=== PATIENT | female | born 1985 | race Caucasian/White ===

== ENCOUNTER → 2023-02-21 | Outpatient (CLI) | payer BC ==
--- NOTE | 2023-02-24 16:59 | MM ---
Reason for Exam: Screening (asymptomatic). Baseline mammogram. Patient History: Menarche at age 10. First Full-Term at age 30. Late child-bearing (after 28). Last menstrual period: 02/18/2023 Risk Values: Rafaela 5 year model risk: 0.7%. NCI Lifetime model risk: 13.7%. Prior Study Comparison: Patient's first Mammogram. No prior studies available for comparison. Tissue Density: There are scattered fibroglandular densities. Findings: Analyzed By CAD. Benign round and punctate dermal calcifications are present. There is no suspicious group of microcalcifications, significant mass, or other discrete abnormality seen in either breast. Overall Assessment: Benign, BI-RAD 2 Management: Screening Mammogram of both breasts in 1 year. . Patient should continue monthly self-breast exams. A clinical breast exam by your physician is recommended on an annual basis. This exam should not preclude additional follow-up of suspicious palpable abnormalities. Note on Rafaela scores and lifetime risk: 1. A Rafaela score greater than 3% is considered moderate risk. If this is the case, consider specialist referral to assess eligibility for a risk reducing agent. 2. If overall lifetime risk for the development of breast cancer is 20% or higher, the patient may qualify for future screening with alternating mammogram and breast MRI. Electronically signed and approved by: Bob Brown M.D. Radiologist
== END | disposition home or self-care (01) ==
LOC: RADMAMWWP 07:43
PROVIDERS: ATTEND Family Medicine
DX: Z12.31 Encounter for screening mammogram for malignant neoplasm of breast (principal)
CPT/HCPCS: 77063; 77067

== ENCOUNTER → 2023-08-31 | Outpatient (CLI) | payer BC ==
--- NOTE | 2023-09-02 07:04 | MR ---
EXAMINATION TYPE: MR sacroiliac joints wo con DATE OF EXAM: 08/31/2023 COMPARISON: None. HISTORY: Low back pain, Sacroiliitis Standard multiplanar, multisequence MRI departmental protocol Multiplanar, multisequence images of the pelvis focusing on the sacroiliac joints were acquired witho ut contrast. FINDINGS: Sacroiliac joints appear symmetric and felt within normal limits. There is no obvious erosi ve change. No suspicious periarticular increased T2 signal or edema is identified. No significant spu rring is seen. Some vacuum disc phenomenon with mild disc bulging at L4-L5 level is present. Anteverted Uterus is no serene. Symmetric normal-size ovaries. No free fluid in the pelvis. No abnormal bowel dilatation. IMPRESSION: No convincing evidence for active or chronic inflammatory change level sacroiliac joints on noncontrast MRI.
== END | disposition home or self-care (01) ==
LOC: RADMRIMAIN 17:41
PROVIDERS: ATTEND Internal Medicine Rheumatology
DX: M46.1 Sacroiliitis, not elsewhere classified (principal)
CPT/HCPCS: 72195

== ENCOUNTER 2023-10-25 15:28 | Emergency (ER) | payer BC, OTHER ==
[2023-10-25 15:39] VITALS: RESP 16
--- NOTE | 2023-10-25 16:42 | XR ---
EXAMINATION TYPE: XR tibia fibula LT DATE OF EXAM: 10/25/2023 CLINICAL HISTORY: pain TECHNIQUE: AP and lateral images of the left tibia and fibula are obtained. COMPARISON: None. FINDINGS: There is no acute fracture/dislocation evident. The joint spaces appear within normal hurtado its. The overlying soft tissue appears unremarkable. IMPRESSION: There is no acute fracture or dislocation seen. ICD 10 NO FRACTURE, INITIAL EVALUATION
--- NOTE | 2023-10-25 16:43 | XR ---
EXAMINATION TYPE: XR foot complete LT DATE OF EXAM: 10/25/2023 CLINICAL HISTORY: pain TECHNIQUE: Frontal, lateral and oblique images of the left foot are obtained. COMPARISON: None. FINDINGS: There is no acute fracture/dislocation evident. The joint spaces appear within normal hurtado its. The overlying soft tissue appears unremarkable. Plantar and dorsal calcaneal spur. IMPRESSION: There is no acute fracture or dislocation. ICD 10 NO FRACTURE, INITIAL EVALUATION
--- NOTE | 2023-10-25 17:44 | ED ---
General Adult HPI - General Chief complaint: Extremity Injury, Lower Stated complaint: fall, L leg numbness Time Seen by Provider: 10/25/23 15:44 Source: patient, RN notes reviewed Mode of arrival: ambulatory Limitations: no limitations - History of Present Illness Initial comments: 38-year-old female presents to the emergency department for evaluation of left lower extremity pain. Patient states that yesterday while walking on the stairs she tripped and fell. She notes that since this time she has had pain in her left foot, ankle, and knee. She has been able to ambulate. She denies any other injury, head injury, blood thinners. - Related Data Previous Rx's Medication Instructions Recorded Orphenadrine [Norflex] 100 mg PO Q12H #10 tablet.er 09/04/14 Allergies Allergy/AdvReac Type Severity Reaction Status Date / Time No Known Allergies Allergy Verified 09/04/14 18:37 Review of Systems ROS Statement: Those systems with pertinent positive or pertinent negative responses have been documented in the HPI. ROS Other: All systems not noted in ROS Statement are negative. Past Medical History Additional Past Medical History / Comment(s): tremors History of Any Multi-Drug Resistant Organisms: None Reported Past Surgical History: Orthopedic Surgery Past Psychological History: No Psychological Hx Reported Past Alcohol Use History: None Reported Past Drug Use History: None Reported General Exam Limitations: no limitations General appearance: alert, in no apparent distress Head exam: Present: atraumatic, normocephalic, normal inspection Eye exam: Present: normal appearance, PERRL, EOMI. Absent: scleral icterus, conjunctival injection, periorbital swelling Respiratory exam: Present: normal lung sounds bilaterally. Absent: respiratory distress, wheezes, rales, rhonchi, stridor Cardiovascular Exam: Present: regular rate, normal rhythm, normal heart sounds. Absent: systolic murmur, diastolic murmur, rubs, gallop, clicks Extremities exam: Present: full ROM, tenderness (left foot and knee), normal capillary refill, other (DP and PT pulses 2+). Absent: pedal edema, joint swelling, calf tenderness Back exam: Present: normal inspection Neurological exam: Present: alert, oriented X3 Psychiatric exam: Present: normal affect, normal mood Skin exam: Present: warm, dry, intact, normal color. Absent: rash Course Vital Signs 10/25/23 10/25/23 15:36 18:10 Temperature 98.4 F 98.3 F Pulse Rate 71 74 Respiratory 16 16 Rate Blood Pressure 141/87 139/86 O2 Sat by Pulse 98 98 Oximetry Medical Decision Making - Medical Decision Making Was pt. sent in by a medical professional or institution (, [facility], DISABILITY INSURANCE CLAIM EXAMINER, urgent care, hospital, or long term...) When possible be specific @ -No Did you speak to anyone other than the patient for history (EMS, parent, family, police, friend...)? What history was obtained from this source @ -No Did you review nursing and triage notes (agree or disagree)? Why? @ -I reviewed and agree with nursing and triage notes Were old charts reviewed (outside hosp., previous admission, EMS record, old EKG, old radiological studies, urgent care reports/EKG's, long term records)? Report findings @ -No old charts were reviewed Differential Diagnosis (chest pain, altered mental status, abdominal pain women, abdominal pain men, vaginal bleeding, weakness, fever, dyspnea, syncope, headache, dizziness, GI bleed, back pain, seizure, CVA, palpatations, mental health, musculoskeletal)? @ -Differential Musculoskeletal Muscular strain, contusion, ligament sprain, fracture, arthritis, septic arthritis, bursitis, cellulitis, muscle spasm, nerve compression, DVT, arterial occlusion, herpes zoster, electrolyte abnormality, tumor.... This is not meant to be in all inclusive list EKG interpreted by me (3pts min.). @ -None X-rays interpreted by me (1pt min.). @ -X-ray of the left tib-fib and left foot show no evidence of acute osseous abnormality CT interpreted by me (1pt min.). @ -None done U/S interpreted by me (1pt. min.). @ -None done What testing was considered but not performed or refused? (CT, X-rays, U/S, labs)? Why? @ -None What meds were considered but not given or refused? Why? @ -None Did you discuss the management of the patient with other professionals (professionals i.e. [facility] Lorenzana, DISABILITY INSURANCE CLAIM EXAMINER, lab, RT, psych nurse, addiction social worker, or scrub tech, teacher, dog license officer supervisor, correctional casework specialist)? Give summary @ -No Was smoking cessation discussed for >3mins.? @ -No Was critical care preformed (if so, how long)? @ -No Were there social determinants of health that impacted care today? How? (Homelessness, low income, unemployed, alcoholism, drug addiction, transport ation, low edu. Level, literacy, decrease access to med. care, residential, rehab)? @ -No Was there de-escalation of care discussed even if they declined (Discuss DNR or withdrawal of care, Hospice)? DNR status @ -No What co-morbidities impacted this encounter? (DM, HTN, Smoking, COPD, CAD, Cancer, CVA, ARF, Chemo, Hep., AIDS, mental health diagnosis, sleep apnea, morbid obesity)? @ -None Was patient admitted / discharged? Hospital course, mention meds given and route, prescriptions, significant lab abnormalities, going to OR and other pertinent info. @ -Discharge. Patient presented to the emergency department for evaluation of left lower extremity injury. X-rays obtained revealing no evidence of acute fracture or dislocation. Patient was provided a dose of Toradol while in the emergency department. She is able to ambulate. She will be discharged home and advised to follow-up to her primary care provider. Advised symptomatic treatment at this time including rest, ice, elevation. She is understanding agreeable plan. Patient stable at time of discharge. Case discussed with Dr. Muniz Undiagnosed new problem with uncertain prognosis? @ -No Drug Therapy requiring intensive monitoring for toxicity (Heparin, Nitro, Insulin, Cardizem)? @ -No Were any procedures done? @ -No Diagnosis/symptom? @ -Fall, leg pain Acute, or Chronic, or Acute on Chronic? @ -acute Uncomplicated (without systemic symptoms) or Complicated (systemic symptoms)? @ -uncomplicated Side effects of treatment? @ -No Exacerbation, Progression, or Severe Exacerbation? @ -No Poses a threat to life or bodily function? How? (Chest pain, [place], [place], pneumonia, PE, COPD, DKA, ARF, appy, cholecystitis, CVA, Diverticulitis, Homicidal, Suicidal, threat to staff... and all critical care pts) @ -No Disposition Clinical Impression: Injury, knee, leg, ankle, and foot Disposition: HOME SELF-CARE Condition: Stable Instructions (If sedation given, give patient instructions): Knee Sprain (ED) Additional Instructions: Please follow up with your primary care provider. Return to the emergency department for new or worsening symptoms. Is patient prescribed a controlled substance at d/c from ED?: No Referrals: Chad Edge MD [Primary Care Provider] - 1-2 days
[2023-10-25] MEDS: KETOROLAC 15 MG/ML 1 ML VIAL IM STA (17:57)
[2023-10-25 18:11] VITALS: BP 139/86; PULSE 74; TEMP 98.3
== END 2023-10-25 18:10 | disposition home or self-care (01) ==
LOC: EC 15:28
DX: S89.92XA Unspecified injury of left lower leg, initial encounter (principal); S99.912A Unspecified injury of left ankle, initial encounter; S99.922A Unspecified injury of left foot, initial encounter; W10.9XXA Fall (on) (from) unspecified stairs and steps, initial encounter; Y93.01 Activity, walking, marching and hiking
CPT/HCPCS: 99283; 96372; 73590; 73630; J1885